=== PATIENT | female | born 1935 | race Caucasian/White ===

== ENCOUNTER → 2019-04-06 16:06 | Outpatient (CLI) | payer MEDICARE, OTHER, SELFPAY ==
[2018-07-13 15:47] VITALS: BMI 27.8
[2019-04-06 17:25] LABS: Hematocrit 42.1 % (37-47); Hemoglobin 13.7 g/dl (12.0-15.0); Mean Corp Hgb Conc 32.5 g/gl (32-36); Mean Corpuscular Hgb 31.6 pg (27.0-32.0); Mean Corpuscular Volume 97.2 fL (81-99); Mean Platelet Vol. 9.9 fl (6.2-12.0); Platelet Count 365 K/mm3 (150-450); RBC Distribution Width CV 13.6 % (11.6-14.6); RBC Distribution Width SD 48.8 fl (35.1-43.9); Red Blood Count 4.33 M/mm3 (4.2-5.4); White Blood Count 9.3 K/mm3 (4.4-11.0)
[2019-04-06 17:28] LABS: Scan Indicated on CBC? Y/N NO
[2019-04-06 18:07] LABS: Anion Gap 8 (5-15); BUN 21 mg/dL (7-18); BUN/Creat Ratio 24.6 RATIO (10-20); Calcium,Total 9.3 mg/dL (8.5-10.1); Chloride 103 mmol/L (98-107); Creatinine, Serum 0.85 mg/dL (0.55-1.02); EST Glomerular Filtration Rate 68 mL/min (>60); Est Glom Filt Rate - Afr Amer 82 mL/min (>60); Glucose 151 mg/dL (74-106); Potassium 4.1 mmol/L (3.5-5.1); Sodium Level 141 mmol/L (136-145)
== END ==
PROVIDERS: Physician Assistant; Family Provider Preventive Medicine Occupational Medicine; PCP Preventive Medicine Occupational Medicine; Referring Provider Orthopaedic Surgery; Visit Provider Orthopaedic Surgery
DX: Z01.818 Encounter for other preprocedural examination (principal); E11.9 Type 2 diabetes mellitus without complications
CPT/HCPCS: 36415; 80048; 85027

== ENCOUNTER → 2023-07-23 | Outpatient (CLI) | payer MEDICARE, OTHER, SELFPAY ==
--- NOTE | 2023-07-23 17:32 | CT_ITS ---
EXAM: CT ABDOMEN AND PELVIS WITH INTRAVENOUS CONTRAST CLINICAL INDICATION: HX OF COLON CA-ABDOMINAL PAIN, WITH METS TO LYMPH NODES. SURGERY INCLUDES ,RIGHT HEMICOLECTOMY,HERNIA REPAIR , APPENDECTOMY TECHNIQUE: Helically acquired images were obtained of the abdomen and pelvis with intravenous contrast. This CT exam was performed using one or more of the following dose reduction techniques: automated exposure control, adjustment of the mA and/or kV according to patient size, and/or use of iterative reconstruction technique. CONTRAST: Oral and amp; IV Readi-CAT and amp; 100mL [id number] COMPARISON: CT abdomen and pelvis, 08/19/2016. FINDINGS: LOWER THORAX: Interval increase in the size of the somewhat lobulated right middle lobe pulmonary nodule now measuring 1.3 x 0.9 x 0.8 cm, previously 1.1 x 0.8 x 0.7 cm. Mild scarring or atelectasis in the lingula. No cardiomegaly. No significant pericardial effusion. ABDOMEN: LIVER: No significant abnormality. Homogeneous. No focal mass. GALLBLADDER AND BILE DUCTS: No significant abnormality. No calcified gallstones. No gallbladder distention or wall edema. No intra- or extrahepatic biliary ductal dilation. PANCREAS: No significant abnormality. No focal cystic or solid mass. SPLEEN: No significant abnormality. Normal size without focal cystic or solid mass. ADRENALS: 1.2 cm left adrenal nodule is unchanged. KIDNEYS AND URETERS: No significant abnormality. Normal renal size and position. No hydronephrosis. STOMACH AND BOWEL: Status post right partial colectomy. No stomach or bowel distention. PELVIS: APPENDIX: See above. BLADDER: No significant abnormality. REPRODUCTIVE: Normal as visualized. No mass. ABDOMEN and PELVIS: INTRAPERITONEAL SPACE: No significant abnormality. No ascites or other fluid collection. No free air. BONES/JOINTS: No significant abnormality. No suspicious lytic or blastic abnormality. 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 No discrete abdominal or pelvic wall hernia. VASCULATURE: Atherosclerosis of the aorta and its branch vessels. Abdominal aorta is non-dilated. LYMPH NODES: There is no lymphadenopathy. TUBES, LINES AND DEVICES: Transcatheter aortic valve replacement (TAVR). Cardiac pacer leads partially visualized. CT/Abdomen/Pelvis WITH Contrast IMPRESSION: 1. Interval increase in the size of the somewhat lobulated right middle lobe pulmonary nodule now measuring 1.3 x 0.9 x 0.8 cm, previously 1.1 x 0.8 x 0.7 cm. Given the long time interval since prior, despite growth, this is unlikely to be metastasis and less the patient is undergoing continuous treatment. Follow-up as clinically indicated. Consider PET/CT. 2. 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 3. 1.2 cm left adrenal nodule is unchanged. ACR White Paper guidelines (CottoNima, et al. JACR 2017; 14(8):4781-4525) suggest no follow-up is necessary. 4. Status post right partial colectomy. 5. There is no lymphadenopathy. 6. No additional acute findings. Electronically Signed: Butch Resendiz DO at 23:00 EDT ,
== END | disposition home or self-care (01) ==
LOC: CT 17:29
PROVIDERS: PCP Preventive Medicine Occupational Medicine; Visit Provider Internal Medicine Medical Oncology
DX: R10.9 Unspecified abdominal pain (principal); Z85.038 Personal history of other malignant neoplasm of large intestine
CPT/HCPCS: 74177; Q9967

== ENCOUNTER → 2025-08-06 | Outpatient (CLI) | payer MEDICARE, OTHER, SELFPAY ==
--- NOTE | 2025-08-06 12:24 | RAD_ITS ---
PROCEDURE: CHEST PA AND LATERAL 08/06/2025 REASON FOR EXAM: HX OF COLON CA TECHNIQUE: Procedure Code: RADCXR Modality: DX Procedure: CHEST PA AND LATERAL COMPARISON: None FINDINGS: Left chest pacer. TAVR noted. Mild pulmonary vascular congestion. No focal consolidation. No pleural effusion or pneumothorax. Cardiac silhouette is within normal limits. No acute fractures. RAD/Chest PA and Lateral IMPRESSION: Mild pulmonary vascular congestion. No focal consolidation. Reading Location: [id number]
[2025-08-06 12:45] LABS: Hematocrit 42.2 % (37-47); Hemoglobin 13.9 g/dL (12.0-15.0); Immature Granulocytes Count 0.020 X10^3/uL (0.0-0.0); Mean Corp Hgb Conc 32.9 g/dL (32-36); Mean Corpuscular Volume 95.5 fL (81-99); Mean Platelet Vol. 9.8 fl (6.2-12.0); NRBC Flagged by Analyzer 0 % (0-5); Platelet Count 239 K/mm3 (150-450); RBC Distribution Width CV 13.3 % (11.6-14.6); RBC Distribution Width SD 47.4 fl (35.1-43.9); Red Blood Count 4.42 M/mm3 (4.2-5.4); White Blood Count 5.9 K/mm3 (4.4-11.0)
[2025-08-06 13:46] LABS: AST(SGOT) 33 U/L (<=31); Alanine Aminotransfer ALT/SGPT 21 U/L (<=34); Albumin, Serum 4.3 g/dL (3.4-4.8); Alkaline Phosphatase 90 U/L (35-104); Anion Gap 10 (5-15); BUN 21 mg/dL (4-19); BUN/Creat Ratio 26.8 RATIO (10-20); Calcium,Total 9.5 mg/dL (7.6-11.0); Carbon Dioxide 25.5 mmol/L (21.0-32.0); Chloride 106 mmol/L (98-108); Globulin 3.2 g/dL (2.2-4.2); Glucose 113 mg/dL (70-99); LDH 226 U/L (84-246); Potassium 5.0 mmol/L (3.3-5.1)
[2025-08-07 04:07] LABS: Carcinoembryonic Antigen 0.8 ng/mL (0.0-4.7)
== END | disposition home or self-care (01) ==
LOC: RAD 12:16
PROVIDERS: PCP Preventive Medicine Occupational Medicine; Referring Provider Internal Medicine Medical Oncology; Visit Provider Internal Medicine Medical Oncology
DX: Z85.038 Personal history of other malignant neoplasm of large intestine (principal)
CPT/HCPCS: 36415; 71046; 80053; 82378; 83615; 85025